=== PATIENT | male | born 1975 | race African-American/Black ===

== ENCOUNTER 2020-06-26 12:46 | Emergency (ER) | payer MEDICAID ==
[~2020-06-26] VITALS: Ht 177.8 cm; Wt 80.0 kg
[2020-06-26 14:45] VITALS: BP 125/69
[2020-06-26] MEDS ORDERED: SODIUM CHLORIDE 0.9% 1,000 ML IV ONE (15:15)
[2020-06-26 15:44] LABS: BASOPHILS % 0.5 % (0.0-2.0); EOSINOPHILS % 0.1 % (0.0-5.0); HEMOGLOBIN. 14.4 g/dL (14.0-18.0); LYMPHOCYTES % 7.1 % (20.0-50.0); MEAN CORPUSCULAR HEMOGLOBIN 27.5 pg (28.0-32.0); MEAN PLATELET VOLUME 9.2 fl (7.4-10.4); MONOCYTES % 6.4 % (2.0-8.0); NEUTROPHILS % 85.9 % (40.0-76.0); PLATELET 210 x1000/uL (130-400); RED BLOOD CELL COUNT 5.24 mill/uL (4.7-6.1)
[2020-06-26 16:07] LABS: CHLORIDE 106 mEq/L (98-107)
[2020-06-26 16:13] LABS: ETHANOL BLOOD < 10 mg/dL
== END 2020-06-26 17:30 | disposition home or self-care (01) ==
LOC: EDBD 12:53 → ER 12:53
DX: R45.1 Restlessness and agitation (principal); F19.10 Other psychoactive substance abuse, uncomplicated; I49.9 Cardiac arrhythmia, unspecified
CPT/HCPCS: 36415; 80053; 80307; 80320; 80329; 85025; 93005; 96360; 99284; J7030; G0480

== ENCOUNTER 2021-12-29 13:16 | Emergency (ER) | payer MEDICAID ==
[~2021-12-29] VITALS: Ht 185.4 cm; Wt 93.0 kg
[2021-12-29 13:19] VITALS: BP 136/84
== END 2021-12-29 18:19 | disposition left against medical advice (07) ==
LOC: ER 13:35
DX: Z53.21 Procedure and treatment not carried out due to patient leaving prior to being seen by health care provider (principal)
CPT/HCPCS: 99281